=== PATIENT | male | born 1960 | race Two or more races ===

== ENCOUNTER → 2024-06-23 | Outpatient (CLI) | payer MEDICAID, SELFPAY ==
[2024-06-23 10:11] LABS: Collection Type, Urine Clean Catch; RBC,Urine 0 /hpf (0-3)
[2024-06-23 10:29] LABS: Basophils % (Auto) 1 % (0-2.5); Eosinophils # (Auto) 0.1 Thou/mm3 (0.0-0.5); Eosinophils % (Auto) 1 % (0-10); Hematocrit 40.5 % (41.0-53.0); Immature Granulocytes % (Auto) 1 % (0-0); Immature Granulocytes Auto 0.07 Thou/mm3 (0.00-0.00); Lymphocytes # (Auto) 2.6 Thou/mm3 (1.0-4.8); Lymphocytes % (Auto) 34 % (10-50); Mean Corpuscular HGB Conc 34.6 g/dl (31.0-37.0); Mean Corpuscular Volume 87 fL (80-100); Monocytes # (Auto) 0.4 Thou/mm3 (0.0-0.8); Monocytes % (Auto) 5 % (0-12); Neutrophils # (Auto) 4.7 Thou/mm3 (1.8-7.7); Neutrophils % (Auto) 60 % (37-80); Nucleated Red Blood Cell % 0 /100 WBC (0); Platelet Count 299 Thou/mm3 (140-440); RDW Standard Deviation 38.9 fL (35.1-43.9); Red Blood Count 4.66 Miln/mm3 (4.50-5.90); White Blood Count 7.8 Thou/mm3 (3.8-10.6)
[2024-06-23 10:36] LABS: Creatinine MALB Rnd Ur 167 mg/dL (30-125); Microalbumin Creat Ratio 3 mg/gCrea (<30); Microalbumin, Random Urine 5 mg/L (0-300)
[2024-06-23 10:46] LABS: Bacteria,Urine Rare; Bilirubin,Urine Negative (Negative); Blood,Urine Negative (Negative); Clarity,Urine Clear (Clear/Hazy); Color,Urine Yellow (Lt Yel-Yel); Glucose, Urine Negative (Negative); Ketones,Urine Negative (Negative); Leukocyte Esterase,Urine Positive (Negative); Nitrite,Urine Negative (Negative); Protein,Urine Trace (Neg - Trace); Specific Gravity,Urine 1.029 (1.001-1.035); Squamous Epithelial Cell,Urine 3 /hpf (0-5); Urobilinogen,Urine Negative mg/dL (0.0-1.0); WBC,Urine 3 /hpf (0-5)
[2024-06-23 11:02] LABS: Alanine Aminotransferase 23 U/L (10-49); Albumin/Globulin Ratio 1.8 (1.2-2.2); Alkaline Phosphatase 87 U/L (46-116); Anion Gap 8 (7-16); Aspartate Amino Transferase < 10 U/L (0-34); BUN/Creatinine Ratio 19 Ratio (12-20); Bilirubin,Total 0.4 mg/dL (0.3-1.2); Blood Urea Nitrogen 17 mg/dL (9-23); Calcium 8.9 mg/dL (8.3-10.6); Calcium (Corrected) 8.9 mg/dL (8.5-10.1); Carbon Dioxide 26.3 mMol/L (20.0-31.0); Cardiac Risk Estimate 5.1 RATIO (4.0-6.7); Chloride 108 mMol/L (98-107); Cholesterol 184 mg/dL (132-200); Creatinine (Component) 0.9 mg/dL (0.6-1.3); Globulin 2.2 gm/dL (2.3-3.5); Glucose 123 mg/dL (74-106); HDL Cholesterol 36 mg/dL (40-60); LDL Cholesterol,Calculated 118 mg/dL (0-130); Osmolality,Calculated 285 (275-295); Potassium 4.8 mMol/L (3.4-5.1); Sodium 142 mMol/L (136-145); Thyroid Stimulating Hormone 1.02 uIU/mL (0.55-4.78); Total Protein 6.2 gm/dL (5.7-8.2); Triglycerides 150 mg/dL (30-150); eGFR > 60 See Note
[2024-06-23 11:58] LABS: Glucose Estimated Average 126 mg/dL (80-131)
[2024-06-25 13:50] LABS: PSA, Free 0.34 ng/mL; PSA, Total 7.9 ng/mL (< OR = 4.0)
[2024-06-26 07:08] LABS: PSA, % Free 4 % (calc) (>25)
== END | disposition home or self-care (01) ==
PROVIDERS: PCP Nurse Practitioner Family; Referring Provider Nurse Practitioner Family; Visit Provider Nurse Practitioner Family
DX: E11.65 Type 2 diabetes mellitus with hyperglycemia (principal); N40.1 Benign prostatic hyperplasia with lower urinary tract symptoms; R30.0 Dysuria; R53.83 Other fatigue
CPT/HCPCS: 36415; 80053; 80061; 81001; 82043; 82570; 83036; 84153; 84154; 84439; 84443; 85025; 87086

== ENCOUNTER → 2024-09-18 | Outpatient (BNVA) | payer MEDICAID, SELFPAY | END | disposition home or self-care (01) | PROVIDERS: PCP Nurse Practitioner Family; Referring Provider Nurse Practitioner Family; Visit Provider Urology | DX: N40.1 Benign prostatic hyperplasia with lower urinary tract symptoms (principal); N13.8 Other obstructive and reflux uropathy; R35.0 Frequency of micturition; R97.20 Elevated prostate specific antigen [PSA]; Z80.42 Family history of malignant neoplasm of prostate; N40.2 Nodular prostate without lower urinary tract symptoms; I10 Essential (primary) hypertension; E11.9 Type 2 diabetes mellitus without complications; E66.9 Obesity, unspecified; E78.00 Pure hypercholesterolemia, unspecified | CPT/HCPCS: 81003; 99212; G0463 ==

== ENCOUNTER → 2024-11-21 | Outpatient (BNVA) | payer MEDICAID, SELFPAY | END | disposition home or self-care (01) | PROVIDERS: PCP Nurse Practitioner Family; Referring Provider Nurse Practitioner Family; Visit Provider Urology | DX: N42.89 Other specified disorders of prostate (principal); N40.1 Benign prostatic hyperplasia with lower urinary tract symptoms; N13.8 Other obstructive and reflux uropathy; Z80.42 Family history of malignant neoplasm of prostate; I10 Essential (primary) hypertension; E78.00 Pure hypercholesterolemia, unspecified; E11.9 Type 2 diabetes mellitus without complications; E66.9 Obesity, unspecified; Z68.27 Body mass index [BMI] 27.0-27.9, adult | CPT/HCPCS: 55700; 76942; 81003; 96372; A4649; J1580; J3490; A9270 ==

== ENCOUNTER → 2025-02-04 | Outpatient (CLI) | payer MEDICARE, MEDICAID, SELFPAY ==
[2025-02-04 10:53] LABS: Glucose Estimated Average 123 mg/dL (80-131); Hemoglobin A1C 5.9 % Hgb (4.8-6.0)
[2025-02-04 10:57] LABS: Basophils # (Auto) 0.0 Thou/mm3 (0.0-0.2); Basophils % (Auto) 0 % (0-2.5); Eosinophils # (Auto) 0.1 Thou/mm3 (0.0-0.5); Eosinophils % (Auto) 1 % (0-10); Hematocrit 40.4 % (41.0-53.0); Hemoglobin 14.2 g/dL (13.5-16.0); Immature Granulocytes Auto 0.01 Thou/mm3 (0.00-0.00); Lymphocytes # (Auto) 1.8 Thou/mm3 (1.0-4.8); Lymphocytes % (Auto) 27 % (10-50); Mean Corpuscular HGB Conc 35.1 g/dl (31.0-37.0); Mean Corpuscular Hemoglobin 31.0 pg (25.0-35.0); Mean Corpuscular Volume 88 fL (80-100); Monocytes # (Auto) 0.3 Thou/mm3 (0.0-0.8); Monocytes % (Auto) 5 % (0-12); Neutrophils # (Auto) 4.5 Thou/mm3 (1.8-7.7); Neutrophils % (Auto) 67 % (37-80); Nucleated Red Blood Cell # 0.00 Thou/mm3 (0.00-0.00); Nucleated Red Blood Cell % 0 /100 WBC (0); Platelet Count 194 Thou/mm3 (140-440); RDW Standard Deviation 37.8 fL (35.1-43.9); Red Blood Count 4.58 Miln/mm3 (4.50-5.90); White Blood Count 6.6 Thou/mm3 (3.8-10.6)
[2025-02-04 11:02] LABS: Vitamin B12 393 pg/mL (211-911)
[2025-02-04 11:05] LABS: Creatinine MALB Rnd Ur 222 mg/dL (30-125); Microalbumin Creat Ratio 4 mg/gCrea (<30); Microalbumin, Random Urine 8 mg/L (0-300)
[2025-02-04 11:10] LABS: Alanine Aminotransferase 23 U/L (10-49); Albumin, Serum 4.4 gm/dL (3.4-4.8); Albumin/Globulin Ratio 2.1 (1.2-2.2); Alkaline Phosphatase 99 U/L (46-116); Anion Gap 10 (7-16); Aspartate Amino Transferase 16 U/L (0-34); BUN/Creatinine Ratio 14 Ratio (12-20); Bilirubin,Total 0.7 mg/dL (0.3-1.2); Blood Urea Nitrogen 11 mg/dL (9-23); Calcium 8.9 mg/dL (8.3-10.6); Calcium (Corrected) 8.9 mg/dL (8.5-10.1); Carbon Dioxide 26.6 mMol/L (20.0-31.0); Cardiac Risk Estimate 2.9 RATIO (4.0-6.7); Chloride 105 mMol/L (98-107); Cholesterol 129 mg/dL (132-200); Creatinine (Component) 0.8 mg/dL (0.6-1.3); Globulin 2.1 gm/dL (2.3-3.5); Glucose 117 mg/dL (74-106); HDL Cholesterol 45 mg/dL (40-60); LDL Cholesterol,Calculated 66 mg/dL (0-130); Osmolality,Calculated 283 (275-295); Potassium 3.8 mMol/L (3.4-5.1); Sodium 142 mMol/L (136-145); Total Protein 6.5 gm/dL (5.7-8.2); Triglycerides 88 mg/dL (30-150); eGFR > 60 See Note
[2025-02-07 15:35] LABS: PSA, Free 0.20 ng/mL; PSA, Total 1.4 ng/mL (< OR = 4.0)
[2025-02-09 06:39] LABS: Gamma Glutamyl Transpeptidase* 13 U/L (3-70)
== END | disposition home or self-care (01) ==
PROVIDERS: PCP Nurse Practitioner Family; Referring Provider Nurse Practitioner Family; Visit Provider Nurse Practitioner Family
DX: E11.65 Type 2 diabetes mellitus with hyperglycemia (principal); N40.1 Benign prostatic hyperplasia with lower urinary tract symptoms; F10.10 Alcohol abuse, uncomplicated
CPT/HCPCS: 36415; 80053; 80061; 82043; 82570; 82607; 82977; 83036; 84153; 84154; 85025

== ENCOUNTER → 2025-04-03 | Outpatient (CLI) | payer MEDICARE, MEDICAID, SELFPAY ==
--- NOTE | 2025-04-03 08:45 | XR_ITS ---
Examination: Abdomen sonogram, complete Date and time of exam: April 03, 2025, 0857 hours INDICATIONS: Epigastric pain beginning 3 months ago.. Technique: Multiple real-time grayscale transabdominal sonographic images of the abdomen have been obtained. Findings: Absent gallbladder Common bile duct 0.5 cm Pancreatic head 2.4 cm Aorta not enlarged Liver 16.6 cm lobular contour no focal liver lesions Normal hepatopetal portal venous flow Patent IVC Right kidney 9.7 cm renal cortex 1.7 cm Left kidney 11.6 cm renal cortex 1.8 cm Spleen 10.0 cm IMPRESSION: Absent gallbladder Normal common bile duct Mild hepatomegaly
== END | disposition home or self-care (01) ==
PROVIDERS: PCP Nurse Practitioner Family; Referring Provider Nurse Practitioner Family; Visit Provider Nurse Practitioner Family
DX: R16.0 Hepatomegaly, not elsewhere classified (principal); Z90.49 Acquired absence of other specified parts of digestive tract
CPT/HCPCS: 76700